=== PATIENT | female | born 1990 | race Caucasian/White ===

== ENCOUNTER 2016-09-06 10:46 | Day surgery (SDC) | payer BC ==
[~2016-09-06] VITALS: Ht 165.1 cm; Wt 113.4 kg
[~2016-09-06 10:46] MED LIST: CEFAZOLIN SOD 2 GM in D5W 50 ML IV ONE
[2016-09-06] MEDS ORDERED: LR 1,000 ML IV SCH (12:57)
[2016-09-06] MEDS ORDERED: ONDANSETRON HCL 4 MG/2 ML VIAL IVP PRN ×2 (13:00→13:30)
[2016-09-06] MEDS ORDERED: KETOROLAC TROMETHAMINE 30 MG VIAL IVP PRN (13:00)
[2016-09-06] MEDS ORDERED: HYDROmorphone 1 MG INJ. 1 MG/ML AMPUL IVP PRN (13:00)
[2016-09-06] MEDS ORDERED: HYDROmorphone 2 MG/ML VIAL IVP PRN ×2 (13:00)
[2016-09-06] MEDS ORDERED: MEPERIDINE HCL/PF 25 MG/ML DISP.SYRIN IVP PRN ×2 (13:00)
[2016-09-06] MEDS ORDERED: MORPHINE 4 MG/ML INJ. SYRINGE IVP PRN (13:30)
[2016-09-06] MEDS ORDERED: ACETAMINOPHEN/CODEINE 300 MG-30 MG TABLET PO PRN (13:30)
[2016-09-06] MEDS ORDERED: SEVOFLURANE 15 MIN GAS INH ONE (14:00)
[2016-09-06] MEDS ORDERED: PROPOFOL 200MG/ 20ML VIAL (DIPRIVAN) IV ONE (14:00)
[2016-09-06] MEDS ORDERED: MIDAZOLAM HCL 5 MG/5 ML VIAL ONE (14:00)
[2016-09-06] MEDS ORDERED: SUCCINYLCHOLINE CHLORIDE 20 MG/ML(QUELICIN) ONE (14:00)
[2016-09-06] MEDS ORDERED: NS IRRIG SOLN 1000 ML IR ONE (14:00)
[2016-09-06] MEDS ORDERED: fentaNYL CITRATE/PF 100 MCG/2 ML AMP ONE (14:00)
[2016-09-06 14:28] VITALS: BP_SYST 112
[2016-09-06] MEDS ORDERED: IBUPROFEN 800 MG TABLET PO PRN (18:00)
== END 2016-09-06 15:02 | disposition home or self-care (01) ==
LOC: SDS 10:46 → SMU 10:47 → SDS 15:02
PROVIDERS: ATTEND Obstetrics & Gynecology
DX: Z30.2 Encounter for sterilization (principal)
CPT/HCPCS: 58700; 88302; J0330; J0690; J2250; J2704; J3010; J7060